=== PATIENT | female | born 1960 | race Two or more races ===

== ENCOUNTER 2020-07-16 09:24 | Outpatient (CLI) | payer BC | END 2020-07-16 23:59 | disposition home or self-care (01) | LOC: ROC 09:24 | PROVIDERS: ATTEND Radiology Radiation Oncology | DX: C54.1 Malignant neoplasm of endometrium (principal) | CPT/HCPCS: 99214; G0463 ==

== ENCOUNTER → 2020-10-15 | Outpatient (CLI) | payer BC ==
[~2020-10-15] MED LIST: ACET325T26 PO; DEXA4TAB66 PO; ONDA4TAB7 PO
== END | disposition home or self-care (01) ==
LOC: ROC 07:55
PROVIDERS: ATTEND Radiology Radiation Oncology
DX: C54.1 Malignant neoplasm of endometrium (principal)
CPT/HCPCS: 99212; G0463